=== PATIENT | female | born 2000 | race Caucasian/White ===

== ENCOUNTER 2022-02-19 18:49 | Emergency (ER) | payer OTHER ==
[~2022-02-19] VITALS: Ht 162.6 cm; Wt 54.4 kg
[2022-02-19] MEDS ORDERED: HALOPERIDOL IM 5 MG/ML VIAL IM ONE (18:55)
[2022-02-19] MEDS ORDERED: diphenhydrAMINE 50 MG/ML VIAL IM ONE (18:55)
--- NOTE | 2022-02-19 18:58 | NUR ---
PT [facility]ANKA VIA GURNEY TO BED 08. [place] [facility] AT BEDSIDE.
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
--- NOTE | 2022-02-19 19:22 | NUR ---
Annel doss in [facility] - 02/19/22 at 1939 by PREET Report and transfer of care given to MILAGROS Mark.
--- NOTE | 2022-02-19 19:35 | NUR ---
Urine sample obtained, walked to lab.
--- NOTE | 2022-02-19 19:39 | NUR ---
Report and transfer of care given to TO Escobar
--- NOTE | 2022-02-19 19:40 | NUR ---
Report recieved from MILAGROS Diaz for transfer of care.
--- NOTE | 2022-02-19 20:23 | NUR ---
Dr. Ceron evaluating patient at bedside.
--- NOTE | 2022-02-19 20:45 | NUR ---
Patients calm and cooperative, restraints removed.
[2022-02-19 20:50] VITALS: BP 109/67
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
== END 2022-02-19 20:50 | disposition home or self-care (01) ==
LOC: MED 18:49
DX: F10.129 Alcohol abuse with intoxication, unspecified (principal); J45.909 Unspecified asthma, uncomplicated; F12.90 Cannabis use, unspecified, uncomplicated; Y90.9 Presence of alcohol in blood, level not specified; V49.88XA Car occupant (driver) (passenger) injured in other specified transport accidents, initial encounter; Y93.89 Activity, other specified; Y92.89 Other specified places as the place of occurrence of the external cause; Y99.8 Other external cause status
CPT/HCPCS: 81002; 81025; 99285